=== PATIENT | female | born 1985 | race Two or more races ===

== ENCOUNTER 2025-08-11 09:52 | Outpatient (REF) | payer OTHER, MEDICAID, SELFPAY ==
--- OUTSIDE RECORDS SUMMARY | 2025-08-11 09:00 | XMS_ITS | Encounter Summary ---
Author Organization [employer] Address [address] [place] [address] Care Team Providers Care Acid Retort Operator Name Role Phone Atilio Daniels MD Primary Care Provider Reason for Referral * Consultation (Routine) - Authorized Specialty Diagnoses / Procedures Referred By Contac t Referred To Contact Behavioral Health Diagnoses PATRICIA (generalized anxiety disorder) Procedures Referral to Behavioral Health Atilio Daniels MD [address] [place] [address] Phone: tel: fax: Referral ID Status Reason Start Date Expiration Date Visits Requested Visits Authorized [id number] Authorized Specialty Services Required 08/11/2025 08/11/2026 1 1 * Imaging (Routine) - Authorized Specialty Diagnoses / Procedures Referred By Monique t Referred To Contact Radiology Diagnoses Encounter for screening for malignant neoplasm of breast, unspecified screening modality Procedures BI Mammogram Screening Tomosynthesis Bilateral Atilio Daniels MD [address] [place] [address] Phone: tel: fax: [address] Phone: tel: fax: Referral ID Status Reason Start Date Expiration Date V isits Requested Visits Authorized [id number] Authorized 08/11/2025 08/11/2026 1 1 * Consultation (Routine) - Authorized Specialty Diagnoses / Procedures Referred By Monique t Referred To Contact Midwifery Diagnoses Screening for cervical cancer Irregular menses NameAtilio MD [address] [place] [address] Phone: tel: fax: Eden Bahena CNM [address] [place] [address] Phone: tel: fax: Referral ID Status Reason Start Date Expiration Date Visits Requested Visits Authorized [id number] Authorized Consult and Treat 08/11/2025 08/11/2026 1 1 Encounter Details Date Type Department Care Team ([facility] st Contact Info) Description 08/11/2025 9:00 AM EST Office Visit [facility] MED[facility] [address] [place] [phone] NameAtilio MD [address] [place] [phone] PATRICIA (generalized anxiety disorder) (Primary Dx); Chronic diarrhea; Heat intolerance; Encounter for screening for malignant neoplasm of breast, unspecified screening modality; Encounter for immunization; Screening for diabetes mellitus; Screening for cholesterol level; Screening for cervical cancer; Irregular menses; History of HPV infection Social History Tobacco Use Types Packs/Day Years Used Date Smoking Tobacco: Never Smokeless Tobacco: Never Tobacco Cessation:Counseling Given: Not Answered Alcohol Use Standard Drinks/Week Comments Never 0 (1 standard drink = 0.6 oz pur e alcohol) Depression Answer Date Recorded Patient Health Questionnaire-9 Score 1 08/11/2025 Patient Health Questionnaire-9 Score 1 08/11/2025 Last PHQ-9: Questionnaire Data Not on file 1 10/11/2024 Housing Stability Answer Date Recorded What is your housing situation today? I have denise torres 08/04/[address] you li ve. Do you have problems with any of the following? None of the above 08/04/2025 Food Insecurity Answer Date Recorded Within the past 12 months, y ou worried that your food would run out before you got money to buy more: Never True 08/04/2025 Within the past 12 months,th e food you bought just didn't last and you didn't have enough money to get more: Never True Transportation Answer Date Recorded In the past 12 months, has l ack of transportation kept you from medical appts, meetings, work or from getting things needed for daily living? No 08/04/2025 Utilities Answer Date Recorded In the past 12 months, has t he electric, gas, oil or water company threatened to shut off services in your home? No 08/04/2025 Depression Answer Date Recorded Patient Health Questionnaire-2 Score 0 08/11/2025 Internet Access Answer Date Recorded Internet Access Q1 Yes 08/04/2025 Internet Access Q2 Not on file 08/04/2025 Comments No Sex and Gender Information Value Date Recorded Sex Assigned at Female 08/10/2025 9:09 AM EST Legal Sex Female 10:53 AM EDT Gender Identity Female 08/10/2025 9:09 AM EST Sexual Orientation Straight 08/10/2025 9: 09 AM EST documented as of this encounter Last Filed Vital Signs Vital Sign Reading Time Taken Comments Blood Pressure 122/84 08/11/2025 9:08 AM EST Pulse 71 08/11/2025 9:08 AM EST Temperature 36.6 C (97.8 F) 08/11/2025 9:08 AM EST Respiratory Rate 18 08/11/2025 9:08 AM EST Oxygen Saturation 97% 08/11/2025 9:08 AM EST Inhaled Oxygen Concentration - - Weight 62.9 kg (138 lb 9.6 oz) 08/11/2025 9:08 A M EST Height 153 cm (5' 0.24 ) 08/11/2025 9:08 AM EST Body Mass Index 26.86 08/11/2025 9:08 AM EST documented in this encounter Functional Status * Over the past 2 weeks, how often have you been bothered by any of the following problems? Question Answer Date of Assessment Author Patient Health Questionnaire -2 Score 0 08/11/2025 9:11 AM EST Omid Bucio MA * Little interest or pleasure in doing things Answer Date of Assessment Author Not at all 08/11/2025 9:11 AM EST Katya Bucio MA * Feeling down, depressed, or hopeless Answer Date of Assessment Author Not at all 08/11/2025 9:11 AM Katya London [place] * Trouble falling or staying asleep, or sleeping too much Answer Date of Assessment Author Several days 08/11/2025 9:11 AM Katya London [place] * Feeling tired or having little energy Answer Date of Assessment Author Not at all 08/11/2025 9:11 AM Katya London [place] * Poor appetite or overeating Answer Date of Assessment Author Not at all 08/11/2025 9:11 AM Katya London [place] * Feeling bad about yourself - or that you are a failure or have let yourself or your family down Answer Date of Assessment Author Not at all 08/11/2025 9:11 AM Katya London [place] * Trouble concentrating on things, such as reading the newspaper or watching television Answer Date of Assessment Author Not at all 08/11/2025 9:11 AM Katya London MA * Moving or speaking so slowly that other people could have noticed? Or the opposite - being so fidgety or restless that you have been moving around a lot more than usual. Answer Date of Assessment Author Not at all 08/11/2025 9:11 AM Katya London MA * Thoughts that you would be better off or hurting yourself in some way Answer Date of Assessment Author Not at all 08/11/2025 9:11 AM Katya London MA * Patient Health Questionnaire-9 Score Answer Date of Assessment Author 1 08/11/2025 9:11 AM Katya London MA * How difficult have these problems made it for you to do your work, take care of things at home, or get along with other people? Answer Date of Assessment Author Not difficult at all 08/11/2025 9:11 AM Katya Veliz MA * Over the last 2 weeks, how often have you been bothered by any of the following problems? Question Answer Date of Assessment Author Feeling nervous, anxious, or on edge 0 08/11/2025 9:11 AM Omid London MA Not being able to stop or control worrying 0 08/11/2025 9:11 AM Omid London MA Worrying too much about different things 0 08/11/2025 9:11 AM Omid London MA Trouble relaxing 0 08/11/2025 9:11 AM Katya Neely MA Being so restless that it is hard to sit still 0 08/11/2025 9:11 AM Omid London MA Becoming easily annoyed or irritable 0 08/11/2025 9:11 AM Omid London MA Feeling afraid as if somethi ng awful might happen 0 08/11/2025 9:11 AM Omid London MA PATRICIA-7 Total Score 0 08/11/2025 9:11 AM Katya London MA documented as of this encounter Plan of Treatment Scheduled Orders Name Type Priority Associated Diagnoses Orde r Schedule CBC auto differential Lab Routine Heat intolerance Expected: 08/11/2025 (Approximate), Expires: 08/11/2026 Comprehensive Metabolic Panel Lab Routine Screening for diabetes mellitus Expected: 08/11/2025 (Approximate), Expires: 08/11/2026 Lipid Panel, Standard Lab Routine Screening for cholesterol level Expected: 08/11/2025 (Approximate), Expires: 08/11/2026 TSH W/Reflex to FT4 Lab Routine PATRICIA (generalized anxiety disorder) Heat intolerance Expected: 08/11/2025 (Approximate), Expires: 08/11/2026 BI Mammogram Screening Tomosynthesis Bilateral Imaging Routine Encounter for screening for malignant neoplasm of breast, unspecified screening modality Expected: 08/11/2025, Expires: 10/11/2026 Scheduled Referrals Name Type Priority Associated Diagnoses Order Schedule Referral to Gynecology ([facility]) Outpatient Referral Routine Screening for cervical cancer Irregular menses Expected: 08/11/2025 (Approximate), Expires: 08/11/2026 documented as of this encounter Visit Diagnoses Diagnosis PATRICIA (generalized anxiety disorder)- Primary Generalized anxiety disorder Chronic diarrhea Diarrhea Heat intolerance Unspecified effects of heat and light Encounter for screening for malignant neoplasm of breast, unspecified screening modality Irregular menses Irregular menstrual cycle History of HPV infection documented in this encounter Additional Health Concerns Assessment Noted Time PHQ-9 Depression Total Score: 1 08/11/20 9:11 AM EST documented as of this encounter Care Teams Acid Retort Operator Relationship Specialty Start Date End Date Name, MD Atilio [address] [place] [address] PCP - General Internal Medicine 08/11/25 documented as of this encounter
[2025-08-11 11:08] LABS: MANUAL DIFF FLAG NO
[2025-08-11 11:20] LABS: Hematocrit 39.2 % (37.0-47.0); Hemoglobin 13.0 g/dl (12.0-16.0); Imm Gran Abs Auto 0.03 X10*3/uL (0.00-0.03); Imm Gran Pct Auto 0.4 % (0.0-0.4); Lymphocytes Absolute Auto 2.3 X10*3/uL (1.2-4.9); Mean Corpuscular HGB Conc 33.2 g/dl (31.0-35.0); Mean Corpuscular Hemoglobin 31.3 pg (27.0-33.0); Mean Corpuscular Volume 94.5 fL (80.0-98.0); NRBC Abs Auto 0.000 X10*3/uL (0.0-0.012); NRBC Pct Auto 0.0 /100WBC (0.0-0.2); Platelet Count 302 X10*3/uL (160-400); Red Blood Count 4.15 X10*6/uL (4.20-5.50); White Blood Count 7.0 X10*3/uL (4.8-10.8)
--- OUTSIDE RECORDS SUMMARY | 2025-08-11 11:20 | XMS_ITS | Encounter Summary ---
Author Organization [employer] Address [address] [place] [address] Care Team Providers Care Surveillance Operator Name Role Phone Name, Atilio AVENDANO Primary Care Provider [phone] Encounter Details Date Type Department Care Team (Latest Contact Info) Description 08/11/2025 Travel Social History Tobacco Use Types Packs/Day Years Used Date Smoking Tobacco: Never Smokeless Tobacco: Never Alcohol Use Standard Drinks/Week Comments Never 0 [...] AM EST documented as of this encounter Functional Status * Over the past 2 weeks, how often have you been bothered by any of the following problems? Question Answer Date of Assessment Author Patient Health Questionnaire -2 Score 0 08/11/2025 9:11 AM Omid London MA * Little interest or pleasure in doing things Answer Date of Assessment Author Not at all 08/11/2025 9:11 AM Katya London MA * Feeling down, depressed, or hopeless [...] as of this encounter Plan of Treatment Not on file documented as of this encounter Visit Diagnoses Not on filedocumented in this encounter Additional Health Concerns Assessment Noted Time PHQ-9 Depression Total Score: 1 08/11/20 25 9:11 AM EST documented as of this encounter Care Teams Surveillance Operator Relationship Specialty Start Date End Date Name, MD Atilio [address] [place] [address] PCP - General Internal Medicine 08/11/25 documented as of this encounter
--- OUTSIDE RECORDS SUMMARY | 2025-08-11 11:20 | XMS_ITS | Encounter Summary ---
Author Organization [employer] Address [address] [place] [address] Care Team Providers Care Segment Producer Name Role Phone Unavailable Primary Care Provider Unavailabl e Reason for Visit * Reason Onset Date Comments chart prep 08/10/2025 Encounter Details Date Type Department Care Team (Late st Contact Info) Description 08/10/2025 Telephone [facility] [address] [place], [place] [phone] Katya Bucio MA chart prep Social History Tobacco Use Types Packs/Day Years Used Date Smoking Tobacco: Never Assessed Depression Answer Date Recorded Patient Health Questionnaire-9 Score 1 08/11/2025 Patient Health Questionnaire-9 Score 1 08/11/2025 Last PHQ-9: Questionnaire Data Not on file 1 10/11/2024 Housing Stability Answer Date Recorded What is your housing situation today? I have denisevy torres 08/04/[address] you [...] Access Q2 Not on file 08/04/2025 Comments Unknown Sex and Gender Information Value Date Recorded Sex Assigned at Female 08/10/2025 9:09 AM EST Legal Sex Female 10:53 AM EDT Gender Identity Female 08/10/2025 9:09 AM EST Sexual Orientation Straight 08/10/2025 9: 09 AM EST documented as of this encounter Miscellaneous Notes * Telephone Encounter - Katya Bucio MA - 08/10/2025 9:30 AM EST Chart Prep Labs: not applicable Images: not applicable Referrals: not applicable Vaccines due: Covid, Flu, Tdap, Hep B, Td, HPV, and DTAP Screenings: mammogram and pap smear Overdue care gaps: SBIRT, SDOH, PHQ-9, PATRICIA-7, Oral health screening, and Disability screen documented in this encounter Plan of Treatment Not on file documented as of this encounter Visit Diagnoses Not on filedocumented in this encounter
--- OUTSIDE RECORDS SUMMARY | 2025-08-11 11:21 | XMS_ITS | Clinical Summary ---
Author Organization [employer] Address [address] [place] [address] Care Team Providers Care Security Orderly Name Role Phone Name, Atilio AVENDANO Primary Care Provider [phone] Allergies No known active allergies Medications escitalopram (Lexapro) 10 MG tablet TAKE 1 TABLET BY MOUTH ONCE DAILY WITH FOOD DIRECTED FOR DEPRESSION AND ANXIETY TAKE WITH 5MG FOR TOTAL DOSE OF 15MG 5 Active escitalopram (Lexapro) 5 MG tablet TAKE 1 TABLET BY MOUTH ONCE DAILY WITH FOOD DIRECTED FOR DEPRESSION AND ANXIETY TAKE WITH 10MG FOR TOTAL DOSE OF 15MG 5 Active loperamide (Imodium A-D) 2 MG tabletIndicatio ns:Chronic diarrhea Take 1-2 tablets (2-4 mg) by mouth if needed in the morning, at noon, and at bedtime for diarrhea for up to 11 days. 30 tablet 3 5 08/22/20 25 Active Active Problems Problem Noted Date Diagnosed Date PATRICIA (generalized anxiety disorder) 08/11/2025 Chronic diarrhea 08/11/2025 History of HPV infection 08/11/2025 Encounters Date Type Department Care Team Description 08/11/2025 9:00 AM EST Office Visit [facility] [address] [place], [place] [phone] Name, MD Atilio PATRICIA (generalized anxiety disorder) (Primary Dx); Chronic diarrhea; Heat intolerance; Encounter for screening for malignant neoplasm of breast, unspecified screening modality; Encounter for immunization; Screening for diabetes mellitus; Screening for cholesterol level; Screening for cervical cancer; Irregular menses; History of HPV infection 08/11/2025 Travel 08/10/2025 Telephone [facility] [address] [place] [address] Katya Bucio MA chart prep 08/04/2025 Patient Outreach [facility] [address] [place] [address] Name, MD Atilio Pre-visit Planning (SDOH negative, Tobacco screening negative.) 08/04/2025 Travel from Last 3 Months Immunizations Immunization Administration Dates Next Due Influenza, seasonal, injectable, preservative fr ee 08/11/2025 Family History Medical History Relation Name Comments No Known Problems Brother ckd Father Hyperlipidemia Mother No Known Problems Sister Relation Name Status Comments Brother Alive Daughter Alive Father Alive Mother Alive Sister Alive Social History Tobacco Use Types Packs/Day Years [...] Orientation Straight 08/10/2025 9: 09 AM EST Last Filed Vital Signs Vital Sign Reading [...] Mass Index 26.86 08/11/2025 9:08 AM EST Plan of Treatment Health Maintenance Due Date Last Done Comments HIV Screening 1983 Family Planning (PISQ) 1998 HPV Vaccines (1 - 3-dose series) 1998 Hepatitis C Screening 2001 DTaP/Tdap/Td Vaccines (1 - Tdap) 2002 Hepatitis B Vaccines (1 of 3 - 19+ 3-dose series) 2002 Pap Smear 2004 Cervical Cancer Screening 2013 HPV/Cotest 2013 Mammogram 2023 COVID-19 Vaccine ( - 2023-2 5 season) 2025 Alcohol/Substance Use Screening 08/11/2026 08/11/2025 Depression Screening 08/11/2026 08/11/2025, 08/11/2025 Disability Screening 08/11/2026 08/11/2025 SDOH Screening 08/11/2026 08/11/2025 Tobacco Screening 08/11/2026 08/11/2025 Zoster Vaccines (1 of 2) 2033 RSV Patients and Patients Aged 60 years or older (1 - 1-dose 75+ series) 2058 Influenza Vaccine Completed 08/11/2025 HIB Vaccines Aged Out No longer eligi ble based on patient's age to complete this topic Hepatitis A Vaccines Aged Out No long er eligible based on patient's age to complete this topic IPV Vaccines Aged Out No longer eligi ble based on patient's age to complete this topic Meningococcal B Vaccine Aged Out No l onger eligible based on patient's age to complete this topic Meningococcal Vaccine Aged Out No lata roger eligible based on patient's age to complete this topic Pneumococcal Vaccine: Pediatrics (0 to 5 Years) and At-Risk Patients (6 to 49) Years Aged Out No longer eligible b ased on patient's age to complete this topic RSV under 20 months Aged Out No longe r eligible based on patient's age to complete this topic Rotavirus Vaccines Aged Out No longer eligible based on patient's age to complete this topic Insurance HSN FULL [facility] Care Teams Security Orderly Relationship Specialty Start Date End Date Name, MD Atilio [address] [place] [address] PCP - General Internal Medicine 08/11/25
--- OUTSIDE RECORDS SUMMARY | 2025-08-11 11:21 | XMS_ITS | Clinical Summary ---
Author Organization [facility] Address [address] [place] [address] Phone Care Team Providers Care Dinkey Engineer Name Role Phone Physician, Pcp Unknown Primary Care Provider Barbara vailable Allergies No known active allergies Medical History Medical History Date Comments No known health problems Social History Tobacco Use Types Packs/Day Years Used Date Smoking Tobacco: Never Smokeless Tobacco: Never Tobacco Cessation:Counseling Given: Not Answered Comments Unknown Sex and Gender Information Value Date Recorded Sex Assigned at Not on file Legal Sex Female 8:17 PM EDT Gender Identity Not on file Sexual Orientation Not on file Obstetrics History Last Filed Vital Signs Vital Sign Reading Time Taken Comments Blood Pressure 116/76 03/11/2025 11:42 PM EDT Pulse 71 03/11/2025 11:42 PM EDT Temperature 37 C (98.6 F) 03/11/2025 11:42 PM EDT Respiratory Rate 18 03/11/2025 11:42 PM EDT Oxygen Saturation 100% 03/11/2025 11:42 PM EDT Inhaled Oxygen Concentration - - Weight 75.8 kg (167 lb) 03/11/2025 8:20 PM EDT Height 162.6 cm (5' 4 ) 03/11/2025 8:20 PM EDT Body Mass Index 28.67 03/11/2025 8:20 PM EDT Plan of Treatment Health Maintenance Due Date Last Done Comments Breast Cancer Screening 1983 DTaP,Tdap,and Td Vaccines (1 - Tdap) 2002 Hepatitis B Vaccines (1 of 3 - 19+ 3-dose series) 2002 Cervical Cancer Screening: P ap Smear 2004 HPV Vaccines (1 - 3-dose SCD M series) 2010 Depression Screening 10/07/2024 HIV Screening 03/12/2025 Hepatitis C Screening 03/12/2025 Social Influencers of Health Screening 03/12/2025 COVID-19 Vaccine (1 - 2023-2 5 season) 2025 Influenza Vaccine (#1) 2025 RSV Immunization Adult Patie nts (1 - 1-dose 75+ series) 2058 HIB Vaccines Aged Out No longer eligi ble based on patient's age to complete this topic Hepatitis A Vaccines Aged Out No long er eligible based on patient's age to complete this topic IPV Vaccines Aged Out No longer eligi ble based on patient's age to complete this topic MMR Vaccines Aged Out No longer eligi ble based on patient's age to complete this topic Meningococcal ACWY Vaccine Aged Out N o longer eligible based on patient's age to complete this topic Meningococcal B Vaccine Aged Out No l onger eligible based on patient's age to complete this topic Pneumococcal Vaccine: Pediat rics (0 to 5 Years) and At-Risk Patients (6 to 49 Years) Aged Out No longer eligible b ased on patient's age to complete this topic RSV Immunization Patients Un honorio 20 months Aged Out No longer eligible b ased on patient's age to complete this topic Varicella Vaccines Aged Out No longer eligible based on patient's age to complete this topic Insurance MEDICAID - [place] Care Teams Dinkey Engineer Relationship Specialty Start Date End Date Physician, Pcp Unknown PCP - General 03/12/25
[2025-08-11 11:55] LABS: Alanine Aminotransferase 27 U/L (0-31); Albumin Level 4.3 g/dL (3.5-5.0); Alkaline Phosphatase 75 U/L (39-117); Anion Gap 10 (12-20); Aspartate Amino Transferase 33 U/L (5-31); Blood Urea Nitrogen 11 mg/dL (9-16); Calcium 8.9 mg/dL (8.4-10.2); Carbon Dioxide 25 mmol/L (22-29); Chloride 107 mmol/L (96-108); Cholesterol 205 mg/dL (<200); Estimated Glomerular Filt Rate > 60; HDL Cholesterol 70 mg/dL (>40); Potassium 4.1 mmol/L (3.3-5.1); Sodium 138 mmol/L (135-145); Total Protein 7.7 g/dL (6.5-8.0); Triglycerides 141 mg/dL (<150)
== END 2025-08-11 09:53 | disposition home or self-care (01) ==
LOC: HO.HHCL 09:52
PROVIDERS: PCP Internal Medicine Geriatric Medicine; Visit Provider Internal Medicine Geriatric Medicine
DX: Z13.1 Encounter for screening for diabetes mellitus (principal); Z13.220 Encounter for screening for lipoid disorders; Z13.6 Encounter for screening for cardiovascular disorders; F41.1 Generalized anxiety disorder; R68.89 Other general symptoms and signs
CPT/HCPCS: 36415; 80053; 80061; 84443; 85025

== ENCOUNTER 2025-09-28 16:21 | Outpatient (REF) | payer OTHER, MEDICAID, SELFPAY ==
--- OUTSIDE RECORDS SUMMARY | 2025-09-28 16:59 | XMS_ITS | Clinical Summary ---
Author Organization [email or web address] Address [address] [place] [address] Care Team Providers Care Design/Animation Instructor Name Role Phone Name, Atilio AVENDANO Primary Care Provider [phone] Allergies No known active allergies Medications * This document contains information received from the source organization and may not represent a complete record from that organization. escitalopram (Lexapro) 10 MG tablet TAKE 1 TABLET BY MOUTH ONCE DAILY WITH FOOD DIRECTED FOR DEPRESSION AND ANXIETY TAKE WITH 5MG FOR TOTAL DOSE OF 15MG 5 Active escitalopram (Lexapro) 5 MG tablet TAKE 1 TABLET BY MOUTH ONCE DAILY WITH FOOD DIRECTED FOR DEPRESSION AND ANXIETY TAKE WITH 10MG FOR TOTAL DOSE OF 15MG 5 Active Active Problems Problem Noted Date Diagnosed Date Anxiety and depression 09/16/2025 PATRICIA (generalized anxiety disorder) 08/11/2025 Chronic diarrhea 08/11/2025 History of HPV infection 08/11/2025 Encounters * This document contains information received from the source organization and may not represent a complete record from that organization. Date Type Department Care Team Description 08/25/2025 Travel 08/11/2025 9:00 AM EST Office Visit [facility] [address] [place] [phone] Name, MD Atilio PATRICIA (generalized anxiety disorder) (Primary Dx); Chronic diarrhea; Heat intolerance; Encounter for screening for malignant neoplasm of breast, unspecified screening modality; Encounter for immunization; Screening for diabetes mellitus; Screening for cholesterol level; Screening for cervical cancer; Irregular menses; History of HPV infection 08/11/2025 Travel 08/10/2025 Telephone [facility] [address] [place] [address] Katya Bucio MA chart prep 08/04/2025 Patient Outreach [facility] [address] [place] [address] Name, MD Atilio Pre-visit Planning (SDOH negative, [...] Answer Date Recorded Patient Health Questionnaire-9 Score 5 09/16/2025 Patient Health Questionnaire-9 Score 5 09/16/2025 Last PHQ-9: Questionnaire Data Not on file 1 11/17/2024 Housing Stability Answer Date Recorded What is [...] Answer Date Recorded Patient Health Questionnaire-2 Score 2 09/16/2025 Internet Access Answer Date Recorded Internet Access [...] 2013 Mammogram 2023 COVID-19 Vaccine ( - 2024-2 6 season) 2025 Alcohol/Substance Use Screening 08/11/2026 08/11/2025 Disability Screening 08/11/2026 08/11/2025 SDOH Screening 08/11/2026 08/11/2025 Tobacco Screening 08/11/2026 08/11/2025 Depression Screening 09/16/2026 09/16/2025, 09/16/2025 Zoster Vaccines (1 of 2) 2033 RSV [...] on patient's age to complete this topic Procedures Procedure Name Priority Date/Time Associated Diagnosis Comments TSH W/REFLEX TO FT4 Routine 08/11/2025 1 0:00 AM EST PATRICIA (generalized anxiety disorder) Heat intolerance LIPID PANEL, STANDARD Routine 08/11/2025 10:00 AM EST Screening for cholesterol level COMPREHENSIVE METABOLIC PANEL Routine 08/11/2025 10:00 AM EST Screening for diabetes mellitus CBC WITH AUTO DIFFERENTIAL Routine 08/11/2025 10:00 AM EST Heat intolerance from Last 3 Months Results * TSH W/Reflex to FT4 (08/11/2025 10:00 AM EST) TSH reflex Free T4 1.17 0.32 - 4.0 uIU/mL [facility] Blood Venous blood specimen / Unknown 08/11/2025 10:00 AM EST 08/11/2025 11:03 AM EST us Atilio Daniels MD LAB BLOOD ORDERABLES Final Resul t [facility] [address] [place] [phone] * (ABNORMAL) CBC auto differential (08/11/2025 10:00 AM EST) Pathologist [facility] White Blood Count 7.0 4.8 - 10.8 X10*3/uL [facility] Red Blood Count 4.15(L) 4.20 - 5.50 X10*6/uL [facility] Hemoglobin 13.0 12.0 - 16.0 g/dl [facility] Hematocrit 39.2 37.0 - 47.0 % [facility] Mean Corpuscular Volume 94.5 80.0 - 98.0 fL [facility] Mean Corpuscular Hemoglobin 31.3 27.0 - 33.0 pg [facility] Mean Corpuscular HGB Conc 33.2 31.0 - 35.0 g/dl [facility] Red Cell Distribution Width 12.2 11.0 - 16.0 % [facility] Platelet Count 302 160 - 400 X10*3/uL [facility] Mean Platelet Volume 8.6(L) 9.4 - 12.3 fL [facility] Neutrophils Percent Auto 59.2 45 - 73 % [facility] Imm Gran Pct Auto 0.4 0.0 - 0.4 % [facility] Lymphocytes Percent Auto 33.0 20 - 40 % [facility] Monocytes Percent Auto 5.0 2 - 11 % [facility] Eosinophils Percent Auto 1.7 0 - 4 % [facility] Basophils Percent Auto 0.7 0 - 2 % [facility] NRBC Pct Auto 0.0 0.0 - 0.2 /100WBC [facility] Neutrophils Absolute Auto 4.2 2.0 - 8.3 x10*3/uL [facility] Imm Gran Abs Auto 0.03 0.00 - 0.03 X10*3/uL [facility] Lymphocytes Absolute Auto 2.3 1.2 - 4.9 X10*3/uL [facility] Monocytes Absolute Auto 0.4 0.1 - 1.2 X10*3/uL [facility] Eosinophils Absolute Auto 0.1 0.0 - 0.4 X10*3/uL [facility] Basophils Absolute Auto 0.1 0.0 - 0.2 X10*3/uL [facility] NRBC Abs Auto 0.000 0.0 - 0.012 X10*3/uL [facility] Blood Venous blood specimen / Unknown 08/11/2025 10:00 AM EST 08/11/2025 11:03 AM EST us Atilio Daniels MD LAB BLOOD ORDERABLES Final Resul t Performing Organization Address [facility] de Phone Number [facility] [address] [place] [phone] * (ABNORMAL) Lipid Panel, Standard (08/11/2025 10:00 AM EST) Triglycerides 141 <150 mg/dL [facility] Comment:Desirable Triglyceri de: less than 150 mg/dLBorderline High Triglyceride 150-199 mg/dLHigh Triglyceride: 200-499 mg/dLVery High Triglyceride: greater than or equal to 5OO mg/dL Cholesterol 205(H) <200 mg/dL [facility] Comment:Desirable Cholestero l: less than 200 mg/dLBorderline High Cholesterol: 200-239 mg/dLHigh Cholesterol: greater than 239 mg/dL LDL Cholesterol Calculated 107(H) <100 mg/dL [facility] Comment:Desirable LDL: less than 100 mg/dLNear Optimal/Above Optimal LDL: 110- 129 mg/dLBorderline High LDL: 130-159 mg/dLHigh LDL: 160-189 mg/dLVery High LDL: greater than or equal to 190 mg/dL HDL Cholesterol 70 >40 mg/dL [facility] Comment:Desirable HDL: great er than 40 mg/dL Note: This HDL assay may give artificially low results in patients with liver disease. Blood Venous blood specimen / Unknown 08/11/2025 10:00 AM EST 08/11/2025 11:03 AM EST us Atilio Daniels MD LAB BLOOD ORDERABLES Final Resul t Performing Organization Address [facility] Co de Phone Number [facility] [address] [place] [phone] * (ABNORMAL) Comprehensive Metabolic Panel (08/11/2025 10:00 AM EST) Sodium 138 135 - 145 mmol/L [facility] Potassium 4.1 3.3 - 5.1 mmol/L [facility] Chloride 107 96 - 108 mmol/L [facility] Carbon Dioxide 25 22 - 29 mmol/L [facility] Anion Gap 10(L) 12 - 20 [facility] Urea Nitrogen (BUN) 11 9 - 16 mg/dL [facility] Creatinine, Serum 0.78 0.5 - 1.4 mg/dL [facility] Estimated Glomerular Filt Rate >60 [facility] Comment:Chronic Kidney Disea se: Estimated GFR < 60 mL/min/[id number] Kidney Disease: Estimated GFR < 15 mL/min/1.73m2 Glucose 99 60 - 115 mg/dL [facility] Calcium 8.9 8.4 - 10.2 mg/dL [facility] Bilirubin, Total 0.3 0.0 - 1.0 mg/dL [facility] Aspartate Amino Transferase 33(H) 5 - 31 U/L [facility] Alanine Aminotransferase 27 0 - 31 U/L [facility] Total Protein 7.7 6.5 - 8.0 g/dL [facility] Albumin Level 4.3 3.5 - 5.0 g/dL [facility] Alkaline Phosphatase 75 39 - 117 U/L [facility] Blood Venous blood specimen / Unknown 08/11/2025 10:00 AM EST 08/11/2025 11:03 AM EST us Atilio Name LAB BLOOD ORDERABLES Final Resul t [facility] [address] [place] [phone] from Last 3 Months Insurance [facility] Care Teams Design/Animation Instructor Relationship Specialty Start Date End Date Name, MD Atilio [address] [place] [phone] PCP - General Internal Medicine 08/11/25
--- OUTSIDE RECORDS SUMMARY | 2025-09-28 16:59 | XMS_ITS | Clinical Summary ---
Author Organization [facility] Address [address] [place] [address] Phone Care Team Providers Care Sales Manager Prearranged [employer]erals Name Role Phone Physician, Pcp Unknown Primary [...] on file Sexual Orientation Not on file Last Filed Vital Signs Vital Sign Reading [...] Health Screening 03/12/2025 COVID-19 Vaccine (1 - 2024-2 6 season) 2025 Influenza Vaccine (#1) 2025 RSV [...] topic Insurance MEDICAID - [place] Care Teams Sales Manager Prearranged Funerals Relationship Specialty Start Date End Date Physician, Pcp Unknown PCP - General 03/12/25
== END 2025-09-28 16:22 | disposition home or self-care (01) ==
LOC: HO.MAMMO 16:21
PROVIDERS: PCP Internal Medicine Geriatric Medicine; Visit Provider Internal Medicine Geriatric Medicine
DX: Z12.31 Encounter for screening mammogram for malignant neoplasm of breast (principal)
CPT/HCPCS: 77063; 77067

== ENCOUNTER → 2025-09-28 16:22 | Outpatient (BNV) | payer OTHER, MEDICAID, SELFPAY | PROVIDERS: PCP Internal Medicine Geriatric Medicine; Visit Provider Radiology Body Imaging | DX: Z12.31 Encounter for screening mammogram for malignant neoplasm of breast (principal) | CPT/HCPCS: 77063; 77067 ==